=== PATIENT | female | born 1965 | race Caucasian/White ===

== ENCOUNTER → 2016-07-17 | Outpatient (CLI) | payer OTHER | LOC: FIMAGING 08:50 | DX: Z12.31 Encounter for screening mammogram for malignant neoplasm of breast (principal); Z80.3 Family history of malignant neoplasm of breast | CPT/HCPCS: G0202 ==

== ENCOUNTER 2018-03-04 20:38 | Emergency (ER) | payer SELFPAY ==
[2018-03-04] MEDS ORDERED: fentaNYL 100 MCG/2 ML INJ IVP ONE ×2 (20:59→21:50)
[2018-03-04] MEDS ORDERED: ONDANSETRON 4 MG/2 ML VIAL IVP ONE (20:59)
--- NOTE | 2018-03-04 21:00 | EDPHY ---
H & P Stated Complaint: abd pain, started earlier today, n/v, loose bowel Time Seen by Provider: 03/04/18 20:56 HPI/ROS: CHIEF COMPLAINT: Abdominal pain HISTORY OF PRESENT ILLNESS: 52-year-old female via private vehicle complaining of a progressive epigastric and right upper quadrant abdominal pain since this afternoon. She notes similar episode to use ago which resolved spontaneously and did not seek medical attention at that time. She is currently complaining of nausea, retching. Denies trauma. Denies chest pain. Denies dyspnea. Denies chronic NSAID use. REVIEW OF SYSTEMS: 10 systems reviewed and negative with the exception of the elements mentioned in the history of present illness PAST MEDICAL & SURGICAL HISTORY: no history of abdominal surgery SOCIAL HISTORY: nonsmoker PHYSICAL EXAM (Prior to examination, patient consented to physical exam, hands were washed and my usual and customary physical exam procedures followed) 1) GENERAL: Well-developed, well-nourished, alert and oriented. Appears uncomfortable, retching, bent over, guarding abdomen, crying. 2) HEAD: Normocephalic, atraumatic 3) HEENT: Pupils equal, round, reactive to light bilaterally. Sclera anicteric. Nasopharynx, oropharynx, clear, no lesions. Moist Mucous membranes. 4) NECK: Full range of motion, no meningeal signs. 5) LUNGS: Clear auscultation bilaterally, no wheezes, no rhonchi, no retractions. 6) HEART: Regular rate and rhythm, no murmur, no heave, no gallop. 7) ABDOMEN: Focally tender to palpation epigastrium and right upper quadrant. No lower abdominal pain. No McBurney's point pain. Negative peritoneal sign., 8) MUSCULOSKELETAL: Moving all extremities, no focal areas of tenderness, no obvious trauma. No peripheral edema or discoloration. 9) BACK: No CVA tenderness, no midline vertebral tenderness, no fluctuance, no step-off, no obvious trauma, no visual or palpable abnormality. 10) SKIN: No rash, no petechiae. 11) Psychiatric: Patient is oriented X 3, there is no agitation. DIFFERENTIAL DIAGNOSIS: My differential diagnosis includes, but is not limited to, acute appendicitis, acute cholecystitis, bowel obstruction, acute pancreatitis, ovarian torsion, ectopic , gastritis and urinary tract infection. The patient understands that this diagnosis is provisional and can never be 100% accurate. This is a partial list of diagnoses considered. These considerations are based on history, physical exam, past history and reassessment. - Personal History LMP (Females 10-55): Post Menopausal Current Tetanus Diphtheria and Acellular Pertussis (TDAP): Yes - Medical/Surgical History Hx Asthma: No Hx Chronic Respiratory Disease: No Hx Diabetes: No Hx Cardiac Disease: No Hx Renal Disease: No Hx Cirrhosis: No Hx Alcoholism: No Hx HIV/AIDS: No Hx Splenectomy or Spleen Trauma: No Other PMH: Denies - Social History Smoking Status: Never smoked Constitutional: Initial Vital Signs Temperature (C) 36.5 C 03/04/18 20:39 Heart Rate 70 03/04/18 20:39 Respiratory Rate 17 03/04/18 20:39 Blood Pressure 145/76 H 03/04/18 20:39 O2 Sat (%) 97 03/04/18 20:39 O2 Delivery Mode Room Air O2 (L/minute) 2 Allergies/Adverse Reactions: No Known Allergies Allergy (Unverified 03/04/18 20:39) Home Medications: Medication Instructions Recorded Ondansetron Odt [Zofran Odt] 4 mg PO Q4PRN PRN #10 tab 03/04/18 Medical Decision Making - Diagnostics Imaging Results: Imaging Impressions Abdomen Ultrasound 03/04/18 21:12 Impression: 1. Normal appearance of the gallbladder. 2. There is no bile duct dilatation. 3. Benign-appearing right hepatic cysts. Findings were discussed with Haylee David PA-C at 22:25, on 03/04/2018. Abdomen X-Ray 03/04/18 21:12 Impression: 1. Postoperative change involving the right hip. Please see the above discussion. 2. Nonspecific bowel gas pattern. 3. Potential lower pole left nephrolith versus superimposed debris within the fecal stream. Abdomen CT 03/04/18 22:27 Impression: 1. Features consistent with a gastrointestinal dysmotile syndrome. 2. Mild mesenteritis, with no obvious peritoneal nodularity or sigrid "omental caking." Nonetheless, follow-up CT reevaluation in 8-12 weeks is recommended to assure resolution. 3. There is a 17 mm radiopaque structure in the gastric antrum, perhaps representing an ingested pill, however clinical correlation is advised. 4. Simple hepatic cysts. 5. Periportal edema, likely secondary to IV hydration. 6. Small hiatal hernia. 7. Bibasilar subsegmental atelectasis. Findings and recommendations were discussed with Haylee David PA-C at 23:06, on 03/04/2018. Images reviewed myself ED Course/Re-evaluation: 8:59 p.m.: I evaluated the patient. Patient is difficult to evaluate at this time as she is curled up on the bed crying. I am unable to adequately assess her abdomen. Will administer analgesia and antiemetic and re-evaluated. 913 pm: Revaluation, feeling improvement post 100 mcg iv fentanyl. Able to more adequetely assess the patient. She is focally tender to palpation epigastrium and right upper quadrant. No lower abdominal pain. Will obtain diagnostic studies including ultrasound to evaluate acute cholecystitis and upright x-ray to evaluate free subdiaphragmatic air. I saw this patient independently based on established practice protocols. Care of patient under supervision of secondary supervising physician Dr Vinson with whom I discussed case. 10:30 p.m.: Re-evaluation. Discussed her ultrasound results parent show no evidence of acute cholecystitis or cholelithiasis. She is complaining of return of her abdominal pain 11:38 p.m.: Re-evaluation, patient feeling improvement. Reviewed her imaging studies. Specifically there is a radiopaque foreign object in the gastric antrum. Patient states that she ate a Tums tablet prior to coming to the ER. Also discussed with patient the questionable loosening of prosthetic hardware. She notes no pain or instability of her right hip. Her abdomen is feeling improvement. Doubt acute surgical abdominal pathology. Plan will be discharge home with analgesia, antiemetic, strict handwashing and contagion precautions. She feels comfortable being discharged. - Data Points Laboratory Results: Laboratory Results 03/04/18 21:06 03/04/18 21:06 03/04/18 03/04/18 03/04/18 23:23 21:06 21:06 WBC RBC Hgb Hct MCV MCH MCHC RDW Plt Count MPV Neut % (Auto) Lymph % (Auto) [place] % (Auto) Eos % (Auto) Baso % (Auto) Nucleat RBC Rel Count Absolute Neuts (auto) Absolute Lymphs (auto) Absolute Monos (auto) Absolute Eos (auto) Absolute Basos (auto) Absolute Nucleated RBC Immature Gran % Immature Gran # Sodium 139 mEq/L mEq/L (135-145) Potassium 3.8 mEq/L mEq/L (3.3-5.0) Chloride 102 mEq/L mEq/L (97-110) Carbon Dioxide 24 mEq/l mEq/l (22-31) Anion Gap 13 mEq/L mEq/L (6-14) BUN 24 mg/dL H mg/dL (7-23) Creatinine 0.8 mg/dL mg/dL (0.6-1.0) Estimated GFR > 60 Glucose 108 mg/dL H mg/dL (70-100) Calcium 10.1 mg/dL mg/dL (8.5-10.4) Total Bilirubin 0.4 mg/dL mg/dL (0.1-1.4) Conjugated Bilirubin 0.1 mg/dL mg/dL (0.0-0.5) Unconjugated Bilirubin 0.3 mg/dL mg/dL (0.0-1.1) AST 28 IU/L IU/L (14-46) ALT 29 IU/L IU/L (9-52) Alkaline Phosphatase 98 IU/L IU/L (38-126) Total Protein 7.6 g/dL g/dL (6.3-8.2) Albumin 4.6 g/dL g/dL (3.5-5.0) Lipase 158 IU/L IU/L (23-300) Beta HCG, Qual NEGATIVE Urine Color Pending Urine Appearance Pending Urine pH Pending Ur Specific [place] Pending Urine Protein Pending Urine Ketones Pending Urine Blood Pending Urine Nitrate Pending Urine Bilirubin Pending Urine Urobilinogen Pending Ur Leukocyte Esterase Pending Urine RBC Pending Urine WBC Pending Ur Epithelial Cells Pending Urine Glucose Pending 03/04/18 21:06 WBC 6.87 10^3/uL 10^3/uL (3.80-9.50) RBC 4.51 10^6/uL 10^6/uL (4.18-5.33) Hgb 13.9 g/dL g/dL (12.6-16.3) Hct 40.1 % % (38.0-47.0) MCV 88.9 fL fL (81.5-99.8) MCH 30.8 pg pg (27.9-34.1) MCHC 34.7 g/dL g/dL (32.4-36.7) RDW 13.0 % % (11.5-15.2) Plt Count 216 10^3/uL 10^3/uL (150-400) MPV 10.9 fL fL (8.7-11.7) Neut % (Auto) 45.8 % % (39.3-74.2) Lymph % (Auto) 43.7 % % (15.0-45.0) [place] % (Auto) 8.7 % % (4.5-13.0) Eos % (Auto) 0.9 % % (0.6-7.6) Baso % (Auto) 0.6 % % (0.3-1.7) Nucleat RBC Rel Count 0.0 % % (0.0-0.2) Absolute Neuts (auto) 3.15 10^3/uL 10^3/uL (1.70-6.50) Absolute Lymphs (auto) 3.00 10^3/uL 10^3/uL (1.00-3.00) Absolute Monos (auto) 0.60 10^3/uL 10^3/uL (0.30-0.80) Absolute Eos (auto) 0.06 10^3/uL 10^3/uL (0.03-0.40) Absolute Basos (auto) 0.04 10^3/uL 10^3/uL (0.02-0.10) Absolute Nucleated RBC 0.00 10^3/uL 10^3/uL (0-0.01) Immature Gran % 0.3 % % (0.0-1.1) Immature Gran # 0.02 10^3/uL 10^3/uL (0.00-0.10) Sodium Potassium Chloride Carbon Dioxide Anion Gap BUN Creatinine Estimated GFR Glucose Calcium Total Bilirubin Conjugated Bilirubin Unconjugated Bilirubin AST ALT Alkaline Phosphatase Total Protein Albumin Lipase Beta HCG, Qual Urine Color Urine Appearance Urine pH Ur Specific [place] Urine Protein Urine Ketones Urine Blood Urine Nitrate Urine Bilirubin Urine Urobilinogen Ur Leukocyte Esterase Urine RBC Urine WBC Ur Epithelial Cells Urine Glucose Medications Given: Discontinued Medications Fentanyl (Sublimaze) 100 mcg IVP EDNOW ONE Stop: 03/04/18 21:00 Last Admin: 03/04/18 21:04 Dose: 100 mcg Fentanyl (Sublimaze) 100 mcg IVP EDNOW ONE Stop: 03/04/18 21:51 Last Admin: 03/04/18 21:51 Dose: 100 mcg Sodium Chloride (Ns) 1,000 mls @ 0 mls/hr IV ONCE ONE PRN Reason: Wide Open Stop: 03/04/18 21:57 Last Admin: 03/04/18 22:07 Dose: 1,000 mls Ondansetron HCl (Zofran) 4 mg IVP EDNOW ONE Stop: 03/04/18 21:00 Last Admin: 03/04/18 21:04 Dose: 4 mg Departure - Departure Disposition: Home, Routine, Self-Care Clinical Impression: Gastroenteritis, Volume depletion Condition: Good Instructions: Gastroenteritis (ED), Narcotic-Analgesic/Acetaminophen (By mouth) , Ondansetron (By mouth) Additional Instructions: Seek immediate medical attention if you develop new or worsening symptoms, if you develop fevers, chills, inability to tolerate oral intake or any other symptoms that concerns you. Referrals: Robin Caro MD [Medical Doctor] - 2-3 days, call for appt. Prescriptions: Ondansetron Odt [Zofran Odt] 4 mg PO Q4PRN PRN #10 tab PRN Reason: Nausea
[2018-03-04 21:15] LABS: PLATELET COUNT 216 10^3/uL (150-400)
[2018-03-04] MEDS ORDERED: fentaNYL 100 MCG/2 ML INJ ONE (21:48)
[2018-03-04] MEDS ORDERED: NS 1,000 ML IV ONE (21:56)
[2018-03-04] MEDS ORDERED: IOPAMIDOL (ISOVUE-300) 100 ML BTL ONE (22:36)
[2018-03-04] MEDS ORDERED: ONDANSETRON 4MG PREPACK#2 BTL TAKEHOME ONE (23:41)
[2018-03-04] MEDS ORDERED: HYDROCOD/APAP 5/325 PREPACK#6 BTL TAKEHOME ONE (23:41)
[2018-03-05 00:17] VITALS: BP 110/75
== END 2018-03-05 00:05 | disposition home or self-care (01) ==
DX: K52.9 Noninfective gastroenteritis and colitis, unspecified (principal); E86.9 Volume depletion, unspecified
CPT/HCPCS: 96374; J2405; J3010; Q9967